=== PATIENT | female | born 1965 | race Caucasian/White ===

== ENCOUNTER 2022-07-04 10:37 | Emergency (ER) | payer OTHER ==
[~2022-07-04] VITALS: Ht 160 cm; Wt 44.9 kg
[2022-07-04 11:39] VITALS: BP 128/88
--- NOTE | 2022-07-04 11:45 | NUR ---
Patient ambulated to bed 12 with steady/even gait, accompanied by daughter.
--- NOTE | 2022-07-04 12:00 | NUR ---
56/F REFERRED TO ED BY URGENT CARE. STATES SHE WAS BEING SEEN FOR RIGHT LOWER LEG PAIN AND SWELLING X4 DAYS AND REFFERED TO ED FOR US TO R/O DVT. PATIENT DENIES RECENT INJURY OR TRAUMA, DENIES SOB, CP, STATES 10/10 THROBBING PAIN THAT WORSENS WITH AMBULATION.
--- NOTE | 2022-07-04 14:14 | NUR ---
PATIENT LEFT WITHOUT BEING SEEN BY DR. JENKINS. NO FURTHER CARE PROVIDED FOR PATIENT.
== END 2022-07-04 14:14 | disposition left against medical advice (07) ==
LOC: MED 10:37
DX: M79.661 Pain in right lower leg (principal); Z53.21 Procedure and treatment not carried out due to patient leaving prior to being seen by health care provider